=== PATIENT | female | born 1945 | race Caucasian/White ===

== ENCOUNTER 2023-11-30 18:19 | Emergency (ER) | payer MEDICARE, BC ==
[~2023-11-30] VITALS: Ht 157.5 cm; Wt 68.0 kg
[2023-11-30 18:21] VITALS: BP 123/74; PULSE 104; RESP 18; TEMP 97.9; O2SAT 99
== END 2023-11-30 23:50 | disposition left against medical advice (07) ==
LOC: ER 18:19
DX: S80.02XA Contusion of left knee, initial encounter (principal); E11.9 Type 2 diabetes mellitus without complications; I11.9 Hypertensive heart disease without heart failure; W18.30XA Fall on same level, unspecified, initial encounter; Y93.89 Activity, other specified; Y92.89 Other specified places as the place of occurrence of the external cause; Y99.8 Other external cause status
CPT/HCPCS: 73560; 99283